=== PATIENT | female | born 1995 | race Caucasian/White ===

== ENCOUNTER 2021-10-23 16:36 | Observation (INO) | payer MEDICAID ==
[~2021-10-23] VITALS: Ht 147.3 cm; Wt 49.9 kg
[2021-10-23] MEDS ORDERED: PRED5TAB PO (17:01)
[2021-10-23] MEDS ORDERED: PREN1TAB78 MT (17:02)
[2021-10-23] MEDS ORDERED: ASPI-864 MT (17:02)
[2021-10-23] MEDS ORDERED: HYDR200T35 PO (17:02)
[2021-10-23 17:42] LABS: CLARITY URINE CLEAR (CLEAR); COLOR URINE YELLOW (YELLOW); KETONES URINE TRACE (NEGATIVE); LEUKOCYTE ESTERASE URINE TRACE (NEGATIVE); NITRITE URINE NEGATIVE (NEGATIVE); OCCULT BLOOD URINE 1+ (NEGATIVE); PROTEIN URINE 3+ (NEGATIVE); SPECIFIC GRAVITY URINE 1.021 (1.005-1.030); UROBILINOGEN URINE 0.2 E.U./dL (0.2-1.0)
== END 2021-10-23 19:34 | disposition home or self-care (01) ==
LOC: 8 EST A/PP 16:36
PROVIDERS: ADMIT Obstetrics & Gynecology; ATTEND Obstetrics & Gynecology
DX: O26.892 Other specified pregnancy related conditions, second trimester (principal); R10.30 Lower abdominal pain, unspecified; O62.9 Abnormality of forces of labor, unspecified; Z3A.23 23 weeks gestation of pregnancy
CPT/HCPCS: 59025; 76805; 81003; G0378; 99281; G0379